=== PATIENT | female | born 2000 | race African-American/Black ===

== ENCOUNTER 2022-02-18 12:19 | Inpatient (IN) | payer OTHER ==
[2022-02-18] MEDS ORDERED: Ibuprofen 800 MG TAB PO PRN (13:16)
[2022-02-18] MEDS ORDERED: Methylergonovine 0.2 MG/ML VIAL IM PRN (13:16)
[2022-02-18] MEDS ORDERED: Diphenoxylate HCl/Atropine Tablet PO PRN (13:16)
[2022-02-18] MEDS ORDERED: Carboprost 250 MCG/ML AMP IM PRN (13:16)
[2022-02-18] MEDS ORDERED: Misoprostol 200 MCG TAB PR PRN (13:16)
[2022-02-18] MEDS ORDERED: HYDROcodone/Acetaminophen 5/325 mg Tablet PO PRN ×2 (13:16)
[2022-02-18] MEDS ORDERED: Acetaminophen 500 MG TAB PO PRN (13:16)
[2022-02-18] MEDS ORDERED: Butorphanol Tartrate 1 MG/ML VIAL SLOW IVP PRN (13:16)
[2022-02-18] MEDS ORDERED: Promethazine HCl 25 MG/ML VIAL IM PRN (13:16)
[2022-02-18] MEDS ORDERED: Lidocaine 1% (PF) 30 ML VIAL SC PRN (13:16)
[2022-02-18] MEDS ORDERED: hydrALAZINE 20 MG/ML VIAL SLOW IVP PRN (13:16)
[2022-02-18] MEDS ORDERED: Ondansetron PF 4 MG/2 ML Vial IVP PRN (13:16)
[2022-02-18] MEDS ORDERED: NS w/ Oxytocin 30 units 500 ML IV SCH (13:30)
[2022-02-18] MEDS ORDERED: Penicillin G Potassium 5 MILL.UNITS in Sodium Chloride 0.9% 100 ML IVPB SCH (13:30)
[2022-02-18 14:22] LABS: Hemoglobin 11.3 g/dL (12.0-15.5); Mean Corpuscular HGB CONC 33.2 g/dL (32.0-36.0); Mean Corpuscular Hemoglobin 26.8 pg (27.0-33.0); Mean Corpuscular Volume 80.6 fl (81.6-98.3); Mean Platelet Volume 13.5 fl (7.4-10.4); Platelet Count 134 10x3/uL (150-450); RBC Distribution Width 15.9 % (11.5-14.5); Red Blood Cell (RBC) Count 4.22 10x6/uL (3.90-5.03); White Blood Cell (WBC) Count 10.4 10x3/uL (3.5-10.5)
[2022-02-18 14:42] LABS: Hep B Surf Ag Non-Reactive S/CO (NonReactive)
[2022-02-18 14:43] LABS: Syphilis Antibody Nonreactive (Nonreactive); Syphilis Antibody Index 0.04 S/CO (<1.00 Non-Reactive)
[2022-02-18 15:41] LABS: HBSAg Index 0.17 S/CO (0-0.99)
[2022-02-18] MEDS: Misoprostol 100 MCG TAB PO SCH ×2 (16:16→23:32)
[2022-02-18] MEDS: Penicillin G 2.5 MILL.units 2.5 MILL.UNITS in Premix Bag 1 BAG IVPB SCH ×2 (16:17→23:40)
[2022-02-18] MEDS: Lactated Ringer's 1,000 ML IV SCH ×2 (16:17→23:41)
[2022-02-18 18:24] LABS: SARS-CoV-2 NAA Rapid Test Not Detected (NotDetected)
[2022-02-18 20:57] VITALS: BMI 36.5
[2022-02-18] MEDS: NS w/ Oxytocin 30 units 500 ML IV SCH (23:32)
[2022-02-18] MEDS ORDERED: Penicillin G Potassium 5 MILL.UNITS VIAL ONE (23:38)
[2022-02-19] MEDS: Penicillin G 2.5 MILL.units 2.5 MILL.UNITS in Premix Bag 1 BAG IVPB SCH ×3 (03:30→16:06)
[2022-02-19] MEDS ORDERED: Fentanyl 2 mcg/Bup 0.1% Cadd 100 ML ONE (03:44)
[2022-02-19] MEDS ORDERED: Naloxone HCl 0.4 mg/ml Vial IVP PRN ×2 (04:19)
[2022-02-19] MEDS ORDERED: Moisturizing Cream (Eucerin) 113 GM JAR TOP PRN (04:19)
[2022-02-19] MEDS ORDERED: Ondansetron PF 4 MG/2 ML Vial IVP PRN ×2 (04:19→17:39)
[2022-02-19] MEDS ORDERED: Promethazine HCl 25 MG/ML VIAL IM PRN (04:19)
[2022-02-19] MEDS ORDERED: Acetaminophen 325 MG TAB PO PRN (04:19)
[2022-02-19] MEDS ORDERED: diphenhydrAMINE 50 MG/ML VIAL IVP PRN (04:19)
[2022-02-19] MEDS ORDERED: Lactated Ringer's 500 ML IV PRN (04:19)
[2022-02-19] MEDS ORDERED: ePHEDrine Sulfate 50 MG/10 ML VIAL SLOW IVP PRN (04:19)
[2022-02-19] MEDS ORDERED: Fentanyl 2 mcg/Bupivacaine 0.1% Cassette 100 ML EPIDURAL SCH (04:30)
[2022-02-19] MEDS ORDERED: Communication Order-Pharmacy FS SCH (04:30)
[2022-02-19] MEDS ORDERED: Fentanyl 100 MCG/2 ML VIAL ONE (11:18)
[2022-02-19] MEDS: Lactated Ringer's 1,000 ML IV SCH ×2 (14:57→14:58)
[2022-02-19] MEDS: Misoprostol 100 MCG TAB PO SCH (14:57)
[2022-02-19] MEDS: NS w/ Oxytocin 30 units 500 ML IV SCH (14:58)
[2022-02-19] MEDS ORDERED: HYDROcodone/Acetaminophen 5/325 mg Tablet PO PRN ×2 (17:39)
[2022-02-19] MEDS ORDERED: Methylergonovine 0.2 MG/ML VIAL IM PRN (17:39)
[2022-02-19] MEDS ORDERED: Milk Of Magnesia 30 ML UDCUP PO PRN (17:39)
[2022-02-19] MEDS ORDERED: NS w/ Oxytocin 30 units 500 ML IV SCH (17:39)
[2022-02-19] MEDS ORDERED: Preparation H Ointment 28 GM TUBE PR PRN (17:39)
[2022-02-19] MEDS ORDERED: Misoprostol 200 MCG TAB VAG PRN (17:39)
[2022-02-19] MEDS ORDERED: hydrALAZINE 20 MG/ML VIAL SLOW IVP PRN (17:39)
[2022-02-19] MEDS ORDERED: Benzocaine-Menthol 82.5 ML CAN TOP PRN (17:39)
[2022-02-19] MEDS ORDERED: Bisacodyl 10 MG SUPP PR PRN (17:39)
[2022-02-19] MEDS ORDERED: Lanolin Ointment 7 GM TUBE TOP PRN (17:39)
[2022-02-19] MEDS: Ibuprofen 800 MG TAB PO SCH (18:44)
[2022-02-20] MEDS: Misoprostol 100 MCG TAB PO SCH (01:37)
[2022-02-20] MEDS: Penicillin G 2.5 MILL.units 2.5 MILL.UNITS in Premix Bag 1 BAG IVPB SCH (01:37)
[2022-02-20] MEDS: Ibuprofen 800 MG TAB PO SCH ×3 (02:20→18:13)
[2022-02-20] MEDS: Docusate 100 MG CAP PO SCH ×3 (02:21→21:07)
[2022-02-20] MEDS: Ferrous Sulfate 325 MG TAB PO SCH ×2 (07:35→15:22)
[2022-02-20] MEDS: Prenatal Vitamin 1 TAB PO SCH (08:56)
[2022-02-21] MEDS: Ibuprofen 800 MG TAB PO SCH ×2 (03:33→11:36)
[2022-02-21 07:25] VITALS: BP 126/58; TEMP 98.4
[2022-02-21] MEDS: Ferrous Sulfate 325 MG TAB PO SCH (08:16)
[2022-02-21] MEDS: Docusate 100 MG CAP PO SCH (08:18)
[2022-02-21] MEDS: Prenatal Vitamin 1 TAB PO SCH (08:18)
== END 2022-02-21 16:10 | disposition home or self-care (01) | DRG 807 ==
LOC: CSHLD/OP 12:19 → CSHLD 14:41 → CSHPP 02-19 15:30
PROVIDERS: ADMIT Obstetrics & Gynecology; ATTEND Obstetrics & Gynecology
PROC: 10D07Z6 Extraction of Products of Conception, Vacuum, Via Natural or Artificial Opening (ICD-10-PCS; principal; 2022-02-19)
PROC: 0KQM0ZZ Repair Perineum Muscle, Open Approach (ICD-10-PCS; 2022-02-19)
PROC: 0UQMXZZ Repair Vulva, External Approach (ICD-10-PCS; 2022-02-19)
PROC: 10907ZC Drainage of Amniotic Fluid, Therapeutic from Products of Conception, Via Natural or Artificial Opening (ICD-10-PCS; 2022-02-19)
DX: O99.824 Streptococcus B carrier state complicating childbirth (principal); Z37.0 Single live birth; Z3A.41 41 weeks gestation of pregnancy; Z20.822 Contact with and (suspected) exposure to COVID-19; D56.3 Thalassemia minor; O99.02 Anemia complicating childbirth; Z79.899 Other long term (current) drug therapy; O70.1 Second degree perineal laceration during delivery; O71.82 Other specified trauma to perineum and vulva; O76 Abnormality in fetal heart rate and rhythm complicating labor and delivery
CPT/HCPCS: 51702; 85027; 86780; 86850; 86900; 86901; 87340; J2540; J2590; J3490; J7120; U0002